=== PATIENT | male | born 1985 | race Caucasian/White ===

== ENCOUNTER 2020-07-05 09:30 | Emergency (ER) | payer OTHER, MEDICARE, MEDICAID ==
[~2020-07-05] VITALS: Ht 185.4 cm; Wt 122.5 kg
[~2020-07-05 09:30] MED LIST: DEPAKOTE; HALO1TAB20 OR; PROZ40CA OR
--- NOTE | 2020-07-05 09:54 | REP ---
INDICATION: TRAUMA COMPARISON: None. TECHNIQUE: Axial noncontrast images from the skull base to the vertex with coronal reformations. This CT examination was performed using the following dose reduction techniques: Automated exposure control, adjustment of mA and/or kv according to the patient's size, and use of iterative reconstruction technique. FINDINGS: The ventricles, sulci, and cisterns are normal in position and appearance. Granado-white differentiation is maintained. No acute intracranial hemorrhage, mass/mass effect, pathology or trauma/injury. No evidence for acute infarction. No extra-axial fluid collection. Calvarium is intact. Paranasal sinuses and mastoid air cells are clear. IMPRESSION: Normal noncontrast head CT. No evidence for acute intracranial pathology or trauma/injury. <Electronically signed by Jagdeep Pearl > 07/05/20 [id number]
[2020-07-05] MEDS ORDERED: ACETAMINOPHEN 500 MG TAB PO ONE (10:45)
[2020-07-05] MEDS ORDERED: ONDANSETRON 4 MG ORAL DISINTEGRATING TAB PO ONE (10:45)
--- NOTE | 2020-07-05 10:46 | REP ---
INDICATION: pain to right shoulder after injury at work COMPARISON: None. TECHNIQUE: Internal rotation, external rotation, and Y view. FINDINGS: No acute fracture or dislocation. The acromioclavicular and glenohumeral joints are intact. No periarticular calcifications or degenerative changes are appreciated. Sub acromial space is normal. Surrounding soft tissues are unremarkable. IMPRESSION: Normal right shoulder radiographs. No acute fracture or dislocation. <Electronically signed by Jagdeep Pearl > 07/05/20 [id number]
[2020-07-05 11:23] VITALS: BP 139/89
== END 2020-07-05 11:31 | disposition home or self-care (01) ==
LOC: M ED 09:30
DX: S06.0X0A Concussion without loss of consciousness, initial encounter (principal); M25.511 Pain in right shoulder; W22.8XXA Striking against or struck by other objects, initial encounter; Y92.9 Unspecified place or not applicable; Y93.9 Activity, unspecified; Y99.0 Civilian activity done for income or pay
CPT/HCPCS: 70450; 73030; 99284; Q0162